=== PATIENT | female | born 1955 | race Hispanic/Latino ===

== ENCOUNTER → 2019-08-27 | Outpatient (CLI) | payer OTHER | END | disposition home or self-care (01) | LOC: RAH 10:07 | PROVIDERS: ATTEND Nurse Practitioner Adult Health | DX: Z13.6 Encounter for screening for cardiovascular disorders (principal) ==

== ENCOUNTER 2020-01-17 15:52 | Inpatient (IN) | payer MEDICARE ==
[~2020-01-17] VITALS: Ht 160 cm; Wt 108.0 kg
[2020-01-17] MEDS ORDERED: KETOROLAC TROMETHAMINE 30MG/ML ONE (16:08)
[2020-01-17] MEDS ORDERED: ONDANSETRON HCL 4 MG/2 ML VIAL ONE ×2 (16:08→18:38)
[2020-01-17] MEDS ORDERED: MORPHINE SULFATE 4 MG/1ML SYG ONE ×2 (16:09→16:53)
[2020-01-17] MEDS ORDERED: SODIUM CHLORIDE 0.9% 1000ML 1,000 ML IV ONE (18:26)
[2020-01-17 18:50] LABS: HEMOGLOBIN A1C 8.3 % (4.0-6.0)
[2020-01-17] MEDS: INSULIN HUMULIN R 100 UNIT/ML 3ML SQ SCH (21:00)
--- NOTE | 2020-01-17 22:30 | NUR ---
ADMIT NOTE ADMIT TO ROOM 332 VIA STRETCHER FROM ER. PATIENT AWAKE, ALERT, OX3, NO SOB,NO C/O PAIN AT THIS TIME, LEFT ARM SLING/SPLINT INTACT , GOOD SENSORY TO LEFT HAND, TEACH PATIENT PLAN OF CARE AND EXPECTED OUTCOME
[2020-01-17 22:44] VITALS: BP 159/78
[2020-01-17] MEDS ORDERED: METF-444 PO ×2 (22:50)
[2020-01-17] MEDS ORDERED: METF-446 PO (22:50)
[2020-01-17] MEDS ORDERED: LOSA50TA64 PO (22:50)
[2020-01-17] MEDS ORDERED: CARV12.511 PO (22:50)
[2020-01-17] MEDS ORDERED: ERGO500014 PO (22:50)
[2020-01-17] MEDS: SODIUM CHLORIDE 0.9% 1000ML 1,000 ML IV SCH (23:51)
[2020-01-18 03:41] VITALS: BP 138/51
[2020-01-18 05:22] LABS: BASOPHILS % (AUTO) 0.7 % (0.0-5.0); EOSINOPHILS % (AUTO) 1.7 % (0.0-8.0); HEMATOCRIT 38.7 % (36-48); LYMPHOCYTES % (AUTO) 22.8 % (21.0-51.0); MEAN CORPUSCULAR HEMOGLOBIN 28.5 pg (27.0-33.0); MEAN CORPUSCULAR HGB CONC 31.8 g/dL (32.0-36.0); MEAN CORPUSCULAR VOLUME 89.8 fL (79-99); MONOCYTES % (AUTO) 8.3 % (3.0-13.0); NUCLEATED RED BLOOD CELLS 0.2 % (0.0-0.19); PLATELET COUNT (AUTO) 211 K/uL (130-400); RED BLOOD CELL COUNT(AUTO) 4.31 MIL/uL (4.00-5.50); RED CELL DISTRIBUTION WIDTH 13.1 % (11.0-15.5); WHITE BLOOD COUNT (AUTO) 8.7 K/uL (4.8-10.8)
[2020-01-18 05:37] LABS: CREATININE 0.7 mg/dL (0.5-1.5); POTASSIUM 3.9 mmol/L (3.5-5.1)
[2020-01-18 05:38] LABS: INR 0.92 (0.85-1.15)
[2020-01-18] MEDS: INSULIN HUMULIN R 100 UNIT/ML 3ML SQ SCH ×4 (05:44→22:35)
[2020-01-18] MEDS: SODIUM CHLORIDE 0.9% 1000ML 1,000 ML IV SCH ×2 (05:45→20:40)
[2020-01-18] MEDS: MORPHINE SULFATE 4 MG/1ML SYG IV PRN ×2 (07:53→15:43)
[2020-01-18 08:00] VITALS: BP 150/62
[2020-01-18 12:00] VITALS: BP 109/38
[2020-01-18] MEDS ORDERED: METOPROLOL TARTRATE 1 MG/ML 5ML VIAL IV SCH (12:00)
[2020-01-18] MEDS ORDERED: METOPROLOL TARTRATE 1 MG/ML 5ML VIAL IV PRN (12:00)
--- NOTE | 2020-01-18 15:33 | NUR ---
INITIAL: Met with pt this afternoon to discuss dcp. Pt states that she is currently living in an extend stay w her dtr and spouse. Prior to her injury she was independent w ambulation and ADLs. She was able to drive where needed. Pt mentions that she prefers to return home at in and mentions that her dtr will be able to assist her if needed. Pt does not own any DME or receive services. CM to continue to follow and wait for Md recommendations. Addendum: 01/18/20 at 1535 by ЮЛИЯ ROLDAN CM Amended: Links added.
[2020-01-18 16:00] VITALS: BP 135/44
[2020-01-18 19:36] VITALS: BP 146/47
[2020-01-18] MEDS: LOSARTAN 50 MG TABLET PO SCH (22:30)
[2020-01-18] MEDS: CARVEDILOL 12.5 MG TABLET PO SCH (22:31)
[2020-01-19] VITALS (28 sets, daily range): BP systolic 117–185; BP diastolic 45–81
[2020-01-19] MEDS: MORPHINE SULFATE 4 MG/1ML SYG IV PRN ×2 (00:06→07:51)
[2020-01-19] MEDS: SODIUM CHLORIDE 0.9% 1000ML 1,000 ML IV SCH ×3 (00:58→22:45)
[2020-01-19 06:02] LABS: HEMATOCRIT 37.6 % (36-48); MEAN CORPUSCULAR HEMOGLOBIN 27.9 pg (27.0-33.0); MEAN CORPUSCULAR HGB CONC 31.1 g/dL (32.0-36.0); MEAN CORPUSCULAR VOLUME 89.5 fL (79-99); RED BLOOD CELL COUNT(AUTO) 4.2 MIL/uL (4.00-5.50); RED CELL DISTRIBUTION WIDTH 13.2 % (11.0-15.5); WHITE BLOOD COUNT (AUTO) 6.9 K/uL (4.8-10.8)
[2020-01-19 06:24] LABS: CREATININE 0.6 mg/dL (0.5-1.5); POTASSIUM 3.7 mmol/L (3.5-5.1)
[2020-01-19] MEDS: INSULIN HUMULIN R 100 UNIT/ML 3ML SQ SCH ×4 (06:33→21:32)
[2020-01-19] MEDS: CARVEDILOL 12.5 MG TABLET PO SCH ×2 (09:00→21:25)
[2020-01-19] MEDS: LOSARTAN 50 MG TABLET PO SCH ×2 (09:00→21:27)
[2020-01-19] MEDS ORDERED: CEFAZOLIN SODIUM 1 GM VIAL ONE (09:29)
[2020-01-19] MEDS ORDERED: MIDAZOLAM HCL 1 MG/ML 2ML VIAL ONE (09:34)
[2020-01-19] MEDS ORDERED: PROPOFOL 10 MG/ML 20ML VIAL IV ONE (09:56)
[2020-01-19] MEDS ORDERED: ROCURONIUM 10MG/1ML SYR 10 MG/ML ML ONE (09:56)
[2020-01-19] MEDS ORDERED: EPHEDRINE SULFATE 50 MG/ML AMPULE ONE (10:35)
[2020-01-19] MEDS ORDERED: ONDANSETRON HCL 4 MG/2 ML VIAL ONE ×2 (12:30→14:06)
[2020-01-19] MEDS ORDERED: DEXAMETHASONE SOD PHOSPHATE 10MG/ML 1ML VIAL ONE (12:30)
[2020-01-19] MEDS ORDERED: GLYCOPYRROLATE 1 MG/5 ML SYRINGE ONE (12:32)
[2020-01-19] MEDS ORDERED: NEOSTIGMINE 5MG/5ML SYR IV ONE (12:32)
[2020-01-19] MEDS ORDERED: PHENYLEPHRINE HCL 10 MG/ML 1ML VIAL IV ONE (12:43)
[2020-01-19] MEDS ORDERED: CALCIUM CARBONATE 500 MG TABLET PO PRN (12:45)
[2020-01-19] MEDS ORDERED: TRAMADOL HCL 50 MG TABLET PO PRN (12:45)
[2020-01-19] MEDS ORDERED: DiphenhydrAMINE HCL 50 MG/ML VIAL IVP PRN (12:45)
[2020-01-19] MEDS ORDERED: POTASSIUM CHLORIDE 20 MEQ ERTAB PO PRN (12:45)
[2020-01-19] MEDS ORDERED: FERROUS FUMARATE 324 MG TABLET PO PRN (12:45)
[2020-01-19] MEDS ORDERED: HYDROCODONE/ACETAMINOPHEN 5/325 MG TAB PO PRN (12:45)
[2020-01-19] MEDS: ACETAMINOPHEN EXTRA STRENGTH 500 MG TABLET PO SCH ×2 (12:45→21:26)
[2020-01-19] MEDS ORDERED: POTASSIUM CHLORIDE 10% ELIXIR 20 MEQ/15 ML UDCUP PO PRN (12:45)
[2020-01-19] MEDS ORDERED: POTASSIUM CHLORIDE 20MEQ/100ML 100 ML IV PRN (12:45)
[2020-01-19] MEDS ORDERED: DIPHENHYDRAMINE HCL 25 MG CAPSULE PO PRN (12:45)
--- NOTE | 2020-01-19 14:15 | NUR ---
ORIF OF LEFT HUMERUS REPORT RECEIVED FROM DANIELA STRICKLAND (PACU). PATIENT S/P ORIF LEFT HUMERUS UNDER GENERAL ANESTHESIA WITH NERVE BLOCK BY DR. MALONEY. DRESSING DRY AND INTACT WITH SLING IN PLACE. PATIENT STABLE AT THIS TIME.
[2020-01-19] MEDS: METFORMIN HCL 500 MG TAB.SR.24H PO SCH (16:48)
[2020-01-19] MEDS: CEFAZOLIN 3GM /D5W 100ML 100 ML IV SCH (18:44)
[2020-01-19] MEDS: HYDROCODONE/ACETAMINOPHEN 5/325 MG TAB PO PRN (21:23)
[2020-01-19] MEDS ORDERED: MORPHINE SULFATE 2 MG/ML 1ML SYG ONE (22:53)
[2020-01-19] MEDS ORDERED: MORPHINE SULFATE 2 MG/ML 1ML SYG IVP ONE (23:00)
[2020-01-20] VITALS: BP 168/67
[2020-01-20] MEDS: HYDROCODONE/ACETAMINOPHEN 5/325 MG TAB PO PRN ×4 (00:56→22:40)
[2020-01-20] MEDS: CEFAZOLIN 3GM /D5W 100ML 100 ML IV SCH (02:10)
[2020-01-20 04:00] VITALS: BP 141/49
[2020-01-20] MEDS: ACETAMINOPHEN EXTRA STRENGTH 500 MG TABLET PO SCH ×2 (05:37→12:19)
[2020-01-20] MEDS: INSULIN HUMULIN R 100 UNIT/ML 3ML SQ SCH ×3 (06:39→18:08)
[2020-01-20 08:05] VITALS: BP 127/41
[2020-01-20] MEDS: CARVEDILOL 12.5 MG TABLET PO SCH (09:00)
[2020-01-20] MEDS: SODIUM CHLORIDE 0.9% 1000ML 1,000 ML IV SCH (09:00)
[2020-01-20] MEDS ORDERED: KETOROLAC TROMETHAMINE 30MG/ML IV PRN (09:00)
[2020-01-20] MEDS: METFORMIN HCL 500 MG TAB.SR.24H PO SCH ×2 (09:00→18:02)
[2020-01-20] MEDS ORDERED: POLYETHYLENE GLYCOL 3350 17 GM POWD.PACK PO SCH (09:00)
[2020-01-20] MEDS ORDERED: LINAGLIPTIN 5 MG TABLET PO SCH (09:00)
[2020-01-20] MEDS: LOSARTAN 50 MG TABLET PO SCH (09:03)
[2020-01-20] MEDS ORDERED: GLIP-162 PO (09:22)
[2020-01-20] MEDS ORDERED: HYDR-4060 PO (09:22)
[2020-01-20] MEDS ORDERED: METF-446 PO (09:22)
[2020-01-20] MEDS ORDERED: KETO10TA2 PO (09:22)
[2020-01-20] MEDS ORDERED: SENN8.6T32 PO (09:22)
[2020-01-20] MEDS ORDERED: HYDR-4457 PO (10:10)
--- NOTE | 2020-01-20 10:49 | NUR ---
DAUGHTER SELINA BYRD CALL AND ASK TO HAVE THE IRONER MACHINE CALL HER , MESSAGE GIVEN TO HANS.
--- NOTE | 2020-01-20 11:00 | NUR ---
cm note per pt states not sure if she can go home feels weak , or needs snf for rehab, wants to discuss with her daughter . will let cm know.
[2020-01-20 11:02] VITALS: BP 113/41
[2020-01-20] MEDS ORDERED: PSYLLIUM SEED 1 EACH PACKET PO SCH (12:00)
--- NOTE | 2020-01-20 15:00 | NUR ---
cm note spoke to pt and daughter re dc planning, they are requesting referral to snf level of care. want for pt. to go to snf at [facility] choice letter obtained and referral faxed, pending approval per scottie bello at [email or web address] let cm know when approved.
[2020-01-20 16:42] VITALS: BP 132/43
--- NOTE | 2020-01-20 18:15 | NUR ---
CM NOTE updated primary nurse alfred that pt has been accepted, and can call report. to [facility] and rehab.
--- NOTE | 2020-01-20 19:30 | NUR ---
DISCHARGE INSTRUCTIONS REPORT CALLED TO JOSIAH RODRIGEZ , PER JOSIAH RODRIGEZ THEY WILL ARRANGE EMS PICK-UP OF PATIENT , CHART COPIED AND MED REC FORM FAX TO NURSING CENTER . PATIENT DAUGHTER AWARE OF PATIENT LEAVING TONIGHT FOR NURSING CENTER. DISCHARGE INSTRUCTIONS GIVEN TO PATIENT AND SHE VERBALIZED UNDERSTANDING . WAITING FOR EMS PICK-UP
[2020-01-20 20:18] VITALS: BP 132/49
[2020-01-21] MEDS ORDERED: BISACODYL 5 MG TABLET.DR PO PRN (12:45)
[2020-01-22] MEDS ORDERED: BISACODYL 10 MG SUPP.RECT RC PRN (12:45)
== END 2020-01-20 23:19 | DRG 493 ==
LOC: EDH 15:52 → EDHIP 17:47 → 3AH 22:10
PROVIDERS: ADMIT Internal Medicine; ATTEND Internal Medicine
PROC: 3E0T3BZ Introduction of Anesthetic Agent into Peripheral Nerves and Plexi, Percutaneous Approach (ICD-10-PCS; 2020-01-19)
PROC: 0PSG04Z Reposition Left Humeral Shaft with Internal Fixation Device, Open Approach (ICD-10-PCS; principal; 2020-01-19 09:55)
PROC: 0PSD04Z Reposition Left Humeral Head with Internal Fixation Device, Open Approach (ICD-10-PCS; 2020-01-19 09:55)
DX: S42.302A Unspecified fracture of shaft of humerus, left arm, initial encounter for closed fracture (principal); Z68.41 Body mass index [BMI] 40.0-44.9, adult; S42.202A Unspecified fracture of upper end of left humerus, initial encounter for closed fracture; I10 Essential (primary) hypertension; E66.01 Morbid (severe) obesity due to excess calories; I45.10 Unspecified right bundle-branch block; E11.42 Type 2 diabetes mellitus with diabetic polyneuropathy; Z20.828 Contact with and (suspected) exposure to other viral communicable diseases; Z90.49 Acquired absence of other specified parts of digestive tract; Z83.3 Family history of diabetes mellitus; Z82.49 Family history of ischemic heart disease and other diseases of the circulatory system; Z86.11 Personal history of tuberculosis; W01.0XXA Fall on same level from slipping, tripping and stumbling without subsequent striking against object, initial encounter; Y93.01 Activity, walking, marching and hiking; Y92.009 Unspecified place in unspecified non-institutional (private) residence as the place of occurrence of the external cause; Y99.8 Other external cause status
CPT/HCPCS: 36415; 70450; 71045; 73060; 80048; 82550; 82948; 83036; 84443; 85025; 85027; 85610; 87426; 93005; 97039; G0378; J0690; J1100; J1815; J1885; J2250; J2270; J2370; J2405; J2704; J2710; J3490; J7030

== ENCOUNTER 2022-02-04 17:54 | Emergency (ER) | payer OTHER ==
[~2022-02-04] VITALS: Ht 162.6 cm; Wt 112.0 kg
[~2022-02-04 17:54] MED LIST: CARV12.511 PO; ERGO500093 PO; GLIP-162 PO; HYDR-4060 PO; KETO10TA2 PO; LOSA50TA64 PO; METF-446 PO; SENN8.6T32 PO
[2022-02-04] MEDS ORDERED: AMOX/CLAV 875/125MG TAB PO ONE (18:30)
[2022-02-04] MEDS ORDERED: TETANUS/DIPHTHERIA TOXOID [ADULT] 0.5 ML VIAL IM ONE (20:40)
[2022-02-04] MEDS ORDERED: AMOX1TAB16 PO (20:42)
[2022-02-04 20:47] VITALS: BP 135/68
[2022-02-04] MEDS ORDERED: DIPH,PERTUSS(ACELL),TET VAC/PF 0.5 ML VIAL IM ONE (21:00)
== END 2022-02-04 20:56 | disposition home or self-care (01) ==
LOC: EDH 17:54
DX: S91.302A Unspecified open wound, left foot, initial encounter (principal); E11.9 Type 2 diabetes mellitus without complications; E78.00 Pure hypercholesterolemia, unspecified; I10 Essential (primary) hypertension; Z79.84 Long term (current) use of oral hypoglycemic drugs; X58.XXXA Exposure to other specified factors, initial encounter; Y93.89 Activity, other specified; Y92.89 Other specified places as the place of occurrence of the external cause; Y99.8 Other external cause status
CPT/HCPCS: 73620; 87070; 87076; 87077; 87186; 90471; 90714